=== PATIENT | male | born 1960 | race American Indian/Alaskan Native ===

== ENCOUNTER 2020-10-09 09:38 | Emergency (ER) | payer SELFPAY ==
[2020-10-09] MEDS ORDERED: KETOROLAC 30 MG/1 ML INJ IM ONE (09:54)
[2020-10-09 09:58] VITALS: BP 128/91
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
== END 2020-10-09 11:20 | disposition home or self-care (01) ==
LOC: ED 09:38
DX: M79.10 Myalgia, unspecified site (principal); R07.89 Other chest pain; F17.200 Nicotine dependence, unspecified, uncomplicated; F12.90 Cannabis use, unspecified, uncomplicated; Z79.899 Other long term (current) drug therapy; V87.8XXA Person injured in other specified noncollision transport accidents involving motor vehicle (traffic), initial encounter; Y93.89 Activity, other specified; Y92.009 Unspecified place in unspecified non-institutional (private) residence as the place of occurrence of the external cause; Y99.8 Other external cause status
CPT/HCPCS: 71111; 96372; 99283; J1885